=== PATIENT | male | born 1975 | race Two or more races ===

== ENCOUNTER 2018-04-23 23:13 | Emergency (ER) | payer MEDICAID ==
[~2018-04-23] VITALS: Ht 167.6 cm; Wt 60.8 kg
[2018-04-23 23:19] VITALS: BP 114/80
[2018-04-23] MEDS ORDERED: ONDANSETRON HCL/PF 4 MG/2 ML VIAL IM ONE (23:30)
[2018-04-23] MEDS ORDERED: ONDANSETRON HCL/PF 4 MG/2 ML VIAL ONE (23:38)
[2018-04-23] MEDS ORDERED: DIATR MEGLU/DIATRIZOATE SODIUM 30 ML BOTTLE (GASTROGRAPHIN) ONE (23:39)
--- NOTE | 2018-04-23 23:54 | NUR ---
[facility] TRANSPORT ETA 1650. TRIP#[id number]
[2018-04-24] MEDS ORDERED: LORAZEPAM INJ 2 MG/ML VIAL ONE ×2 (02:50→03:16)
[2018-04-24] MEDS ORDERED: LORAZEPAM INJ 2 MG/ML VIAL IM ONE ×2 (03:00→03:30)
== END 2018-04-24 03:38 | disposition home or self-care (01) ==
LOC: ER 23:21
DX: Z93.1 Gastrostomy status (principal); G93.40 Encephalopathy, unspecified; I10 Essential (primary) hypertension; K21.9 Gastro-esophageal reflux disease without esophagitis; N17.0 Acute kidney failure with tubular necrosis; Z86.711 Personal history of pulmonary embolism; Z87.09 Personal history of other diseases of the respiratory system
CPT/HCPCS: 43762; 74018; 96372 ×2; 99284; A4606 ×2; J2060 ×2; J2405; Q9963

== ENCOUNTER 2018-09-20 12:52 | Inpatient (IN) | payer MEDICAID ==
[~2018-09-20] VITALS: Ht 172.7 cm; Wt 66.7 kg
--- NOTE | 2018-09-20 13:05 | NUR ---
[facility]. AGITATED ENVIRONMENTAL PROTECTION FORESTER TRYING TO PULL OUT G TUBE. PER EMT, PT BASELINE AOX3-4. ON ARRIVAL PT AOX1, TACHY AND HYPERTENSIVE, RR EVEN AND UNLABORED ON RA. MEXICAN-SPEAKING. READY FOR EVAL.
--- NOTE | 2018-09-20 13:17 | NUR ---
BLOOD DRAWN AND URINE COLLECTED, SENT TO STAT LAB
[2018-09-20 13:18] LABS: BASOPHILS # (AUTO) 0.1 /CMM (0.0-0.2); HEMATOCRIT 34 % (39-51); HEMOGLOBIN 11.3 g/dL (13.5-17.5); LYMPHOCYTES # (AUTO) 1.5 /CMM (0.8-4.8); MEAN CORPUSCULAR HGB CONC 33 g/dl (31.0-36.0); MEAN CORPUSCULAR VOLUME 86 fL (80-96); MONOCYTES # (AUTO) 0.3 /CMM (0.1-1.30); MONOCYTES % (AUTO) 3.3 % (2.0-12.0); NEUTROPHILS # (AUTO) 5.9 /CMM (1.8-8.9); NEUTROPHILS % (AUTO) 75.7 % (43.0-81.0); PLATELET COUNT (AUTO) 231 /CMM (150-450); RED BLOOD CELL COUNT(AUTO) 3.99 MIL/uL (4.5-6.0); WHITE BLOOD COUNT (AUTO) 7.8 K/uL (4.3-11.0)
[2018-09-20] MEDS ORDERED: AMLO10TA4 GT (13:21)
[2018-09-20] MEDS ORDERED: ACET-868 GT ×2 (13:21)
[2018-09-20] MEDS ORDERED: LISI40TA4 GT (13:21)
[2018-09-20] MEDS ORDERED: NA P133E RC (13:21)
[2018-09-20] MEDS ORDERED: BISA10SU61 RC (13:21)
[2018-09-20] MEDS ORDERED: ALBU2.5V13 IH ×2 (13:21)
[2018-09-20] MEDS ORDERED: MAGN400O6 GT (13:21)
[2018-09-20] MEDS ORDERED: PANT40SU GT (13:21)
[2018-09-20] MEDS ORDERED: TEMA15CA GT (13:21)
[2018-09-20] MEDS ORDERED: CLON0.5T GT (13:21)
[2018-09-20] MEDS ORDERED: ATOR40TA GT (13:21)
[2018-09-20] MEDS ORDERED: RIVA10TA PO (13:22)
[2018-09-20] MEDS ORDERED: QUET50TA PO (13:22)
[2018-09-20] MEDS ORDERED: SERT50TA PO (13:22)
[2018-09-20] MEDS ORDERED: QUET100T PO (13:22)
[2018-09-20] MEDS ORDERED: ASCO500C18 PO (13:24)
[2018-09-20] MEDS ORDERED: FERR325T23 PO (13:24)
[2018-09-20 13:25] LABS: APPEARANCE,URINE CLEAR (CLEAR); BILIRUBIN,URINE NEGATIVE (NEGATIVE); BLOOD, URINE 2+ Ery/uL (NEGATIVE); COLOR,URINE YELLOW (YELLOW); KETONES,URINE NEGATIVE (NEGATIVE); LEUKOCYTE ESTERASE ,URINE NEGATIVE (NEGATIVE); NITRITE, URINE NEGATIVE (NEGATIVE); PROTEIN,URINE NEGATIVE (NEGATIVE); UGLUCOSE NEGATIVE (NEGATIVE); UROBILINOGEN,URINE 0.2 EU/dL (0.2)
[2018-09-20 13:32] LABS: BACTERIA,URINE None seen /HPF (None Seen); SQUAMOUS EPITHELIAL CELL,UR Few /HPF (None Seen); WBC,URINE NONE SEEN /HPF (0-3)
[2018-09-20 13:38] LABS: ALANINE AMINOTRANSFERASE 55 U/L (12-78); ALBUMIN 3.9 g/dL (3.4-5.0); ALCOHOL, BLOOD < 3 mg/dL (0-0); ALKALINE PHOSPHATASE 67 U/L (46-116); ASPARTATE AMINOTRANSFERASE 26 U/L (15-37); BILIRUBIN,DIRECT 0.1 mg/dL (0.0-0.2); BILIRUBIN,TOTAL 0.4 mg/dL (0.2-1.0); CALCIUM, SERUM 8.8 mg/dL (8.5-10.1); CARBON DIOXIDE 27 mmol/L (21-32); CHLORIDE 103 mmol/L (98-107); CREATININE 1.4 mg/dL (0.6-1.3); GLUCOSE 102 mg/dL (74-106); SALICYLATE 3.3 mg/dL (2.8-20.0); SODIUM SERUM 139 mmol/L (136-145); TOTAL PROTEIN, SERUM 7.5 g/dL (6.4-8.2); UREA NITROGEN, BLOOD 20 mg/dL (7-18)
[2018-09-20 13:39] LABS: ACETAMINOPHEN 0 ug/ml (10-30)
[2018-09-20] MEDS ORDERED: OLANZAPINE 10 MG VIAL IM ONE ×2 (14:00→14:06)
[2018-09-20] MEDS ORDERED: ACETAMINOPHEN ES 500 MG TABLET PO ONE (14:00)
[2018-09-20] MEDS ORDERED: ACETAMINOPHEN ES 500 MG TABLET ONE (14:06)
[2018-09-20] MEDS ORDERED: CEFTRIAXONE 1GM BAG (ER ONLY) 50 ML IV ONE (14:14)
[2018-09-20 14:29] VITALS: BP 139/76
[2018-09-20] MEDS ORDERED: IV NS 0.9% 1,000 ML BAG IV ONE (14:30)
[2018-09-20] MEDS ORDERED: ACETAMINOPHEN 325 MG TABLET MC PRN (14:30)
[2018-09-20] MEDS ORDERED: CEFTRIAXONE 1 G in IV D5W 50 ML IV ONE (14:30)
[2018-09-20] MEDS ORDERED: ONDANSETRON HCL/PF 4 MG/2 ML VIAL IVP PRN (14:30)
[2018-09-20] MEDS ORDERED: BISACODYL SUPP (10 MG) 10 MG/SUPP.RECT SUPP.RECT RC PRN (14:30)
[2018-09-20] MEDS ORDERED: MAGNESIUM HYDROXIDE 30 ML UDC GT PRN (14:30)
[2018-09-20] MEDS ORDERED: AZITHROMYCIN 500 MG in IV D5W 250 ML IV ONE (14:30)
[2018-09-20] MEDS ORDERED: ALBUTEROL FS 2.5 MG/0.5 ML VIAL.NEB IH PRN (14:30)
[2018-09-20] MEDS ORDERED: ACETAMINOPHEN 325 MG TABLET PO PRN (14:30)
--- NOTE | 2018-09-20 14:34 | NUR ---
IVF INFUSING, PT KARINA WELL. WILL CONT TO MONITOR.
--- NOTE | 2018-09-20 14:54 | NUR ---
CALLED TO GIVE REPORT, NURSE UNAVAILABLE AT THIS TIME. STATED THEY WILL CALL BACK IN 10 MIN
--- NOTE | 2018-09-20 15:00 | NUR ---
AZITHROMYCIN GIVEN BY ME, MARKED UNDER WRONG USER.
--- NOTE | 2018-09-20 15:10 | NUR ---
REPORT GIVEN TO ZHANE ASCENCIO FOR 112-T
[2018-09-20] MEDS ORDERED: FEE PK DOSING 1 MIN EA MC ONE (15:51)
--- NOTE | 2018-09-20 15:51 | NUR ---
[facility]
[2018-09-20] MEDS ORDERED: ACETAMINOPHEN 650 MG/20.3 ML UDC GT PRN (16:00)
[2018-09-20] MEDS ORDERED: ACETAMINOPHEN 650 MG/20.3 ML UDC PO PRN (16:00)
--- NOTE | 2018-09-20 16:00 | NUR ---
telecom coordinator note received patient in bed , alert , oriented x2 with some forgetfulness and confusion , trying to get out off bed with soft restrain per er doctor , placed on tele sr 90, hl on rt fa intact , no sob noted ,on ra admitted with dx sepsis ,pna under Eunice rn conference producer ,will inform her for admitting orders , hospital,orientation done vs taken ,belonging checked by staff , bed in lowest and locked position , plan of care discussed with patient sitter at bedside at high frisk for fall,bed alarm placed on
[2018-09-20] MEDS: clonazePAM 0.5 MG TABLET GT SCH (16:51)
[2018-09-20] MEDS: LISINOPRIL (20MG) 20 MG TABLET GT SCH (16:52)
[2018-09-20] MEDS: VANCOMYCIN 1 GM in IV D5W 250 ML IV SCH (16:54)
--- NOTE | 2018-09-20 17:47 | NUR ---
REFUELING RAMPMAN NOTE PER ALMAZ RN MEDICAL CERTIFICATION SPECIALIST NPO X MEDS ,SWALLOW EVAL TOMORROW
[2018-09-20] MEDS ORDERED: PIPERACILLIN /TAZOBACTAM 3.375 G in IV D5W 50 ML IV SCH (18:00)
--- NOTE | 2018-09-20 18:30 | NUR ---
ACCESSORIES REPAIRER OTE CONT WITH SITTER ORDERED ,ALL NEEDS ATTENDED NOT IN DISTRESS ,NO SOB NOTED
--- NOTE | 2018-09-20 19:10 | NUR ---
HUB CUTTER APPRENTICE NOTE PATIENT REPORT GIVEN BEDSIDE, FAMILY PRESENT. PATIENT A/O X 2. PATIENT RELEASED FROM RESTRAINTS FOR PER FAMILY REQUEST. PATIENT STATES HE IS "MUY CORY." PATIENT DENIES PAIN OR DISCOMFORT PATIENT IS SR ON THE MONITOR NO S/S OF RESP DISTRESS. BREATHING EVEN AND UNLABORED. PATIENT PULSES STRONG AND PRESENT NO S/S OF CIRCULATION ISSUES. PATIENT BED IN LOWEST LOCKED POSITION, PLANS AND GOALS DISCUSSED WITH PATIENT. RN WILL CONTINUE TO MONITOR FOR CHANGES. SITTER PRESENT, AND SAFETY CHECKS Q 15 WILL BE DONE.
[2018-09-20] MEDS: CEFTRIAXONE 1 G in IV D5W 50 ML IV SCH (19:22)
[2018-09-20 20:00] VITALS: BP 147/84
[2018-09-20] MEDS: ATORVASTATIN 40 MG TABLET GT SCH (21:38)
[2018-09-20] MEDS ORDERED: QUETIAPINE FUMARATE 100 MG TABLET PO SCH (22:00)
[2018-09-21] VITALS: BP 126/85
[2018-09-21] MEDS: ALBUTEROL FS 2.5 MG/0.5 ML VIAL.NEB IH SCH ×5 (01:50→19:52)
[2018-09-21 04:00] VITALS: BP 135/91
[2018-09-21] MEDS: VANCOMYCIN 1 GM in IV D5W 250 ML IV SCH (04:00)
--- NOTE | 2018-09-21 06:51 | NUR ---
SENIOR ECONOMIST NOTE PATIENT TOLERATED THE NIGHT WELL NO ACUTE S/S OF DISTRESS. PATIENT WAS RELEASED FROM RESTRAINTS Q 3 HOURS FOR 30 MIN AT TIME. PATIENT AT 0630 STARTED TO REMOVED DIAPER DESPITE RESTRAINTS AND PROCEEDED TO RIP OFF EACH DIAPER AND EXPOSING HIMSELF. PATIENT EXPRESSED THAT HE WANTS PEOPLE TO SEE HIM EXPOSED SO THAT HE CAN TELL PEOPLE THAT THE SUPERVISOR METAL FABRICATING REFUSED TO PUT THE DIAPER ON HIM. RN WITNESS PATIENT REMOVING DIAPER AND DISCUSSION. PATIENT DENIES CHEST PAIN AT THIS TIME AND NO S/S OF SHORTNESS OF BREATH. PATIENT SR WITH HR OF 91 ON THE MONITOR. WILL ENDORSE TO AM FOR SAVANNAH.
[2018-09-21 07:23] LABS: BASOPHILS % (AUTO) 0.3 % (0.0-2.0); EOSINOPHILS % (AUTO) 1.4 % (0.0-6.0); HEMATOCRIT 35 % (39-51); HEMOGLOBIN 11.7 g/dL (13.5-17.5); LYMPHOCYTES # (AUTO) 2.3 /CMM (0.8-4.8); LYMPHOCYTES % (AUTO) 26.5 % (20.0-44.0); MEAN CORPUSCULAR HGB CONC 33 g/dl (31.0-36.0); MEAN CORPUSCULAR VOLUME 85 fL (80-96); MONOCYTES # (AUTO) 0.5 /CMM (0.1-1.30); MONOCYTES % (AUTO) 5.8 % (2.0-12.0); NEUTROPHILS # (AUTO) 5.6 /CMM (1.8-8.9); PLATELET COUNT (AUTO) 245 /CMM (150-450); RED BLOOD CELL COUNT(AUTO) 4.17 MIL/uL (4.5-6.0); WHITE BLOOD COUNT (AUTO) 8.5 K/uL (4.3-11.0)
--- NOTE | 2018-09-21 07:30 | NUR ---
INITIAL PATIENT ACTIVE TRYING TO GET OUT OF BED SOFT RESTRAINTS ADDED TO PREVENT PULLING LINES. HOWEVER, NO ACUTE S/S OF DISTRESS. PATIENT WAS RELEASED FROM RESTRAINTS FOR 30 MIN AT THIS TIME. PATIENT WITHOUT DIAPER PT COVERED WITH GOWN. PATIENT DENIES CHEST PAIN AT THIS TIME AND NO S/S OF SHORTNESS OF BREATH. PATIENT SR WITH HR OF 130'S ON THE MONITOR. WILL CONTINUE TO MONITOR.
[2018-09-21] MEDS: TEMAZEPAM 15 MG CAPSULE GT PRN ×2 (07:32→21:46)
[2018-09-21 07:47] LABS: BILIRUBIN,TOTAL 0.5 mg/dL (0.2-1.0); CALCIUM, SERUM 9.1 mg/dL (8.5-10.1); CREATININE 1.2 mg/dL (0.6-1.3); MAGNESIUM 1.7 mg/dL (1.8-2.4); PHOSPHORUS 3.6 mg/dL (2.5-4.9); POTASSIUM 3.7 mmol/L (3.5-5.1); TOTAL PROTEIN, SERUM 7.5 g/dL (6.4-8.2)
[2018-09-21 08:00] VITALS: BP 141/95
[2018-09-21 08:06] LABS: THYROID STIMULATING HORMONE 1.442 uIU/mL (0.358-3.74)
[2018-09-21] MEDS ORDERED: SERTRALINE HCL 50 MG TABLET GT SCH (09:00)
[2018-09-21] MEDS ORDERED: PANTOPRAZOLE 40 MG/PACK PACK GT SCH (09:00)
[2018-09-21] MEDS ORDERED: QUETIAPINE FUMARATE 25 MG TABLET PO SCH (09:00)
[2018-09-21] MEDS: ACETAMINOPHEN 650 MG/20.3 ML UDC GT SCH (09:23)
[2018-09-21] MEDS: clonazePAM 0.5 MG TABLET GT SCH ×2 (09:24→17:15)
[2018-09-21] MEDS: LISINOPRIL (20MG) 20 MG TABLET GT SCH ×2 (09:24→17:08)
[2018-09-21] MEDS: FERROUS SULFATE (325 MG) 325 MG/TAB TABLET PO SCH (09:24)
[2018-09-21] MEDS: AMLODIPINE BESYLATE 10 MG TABLET GT SCH (09:24)
[2018-09-21] MEDS: ASCORBIC ACID 500 MG TABLET PO SCH (09:24)
[2018-09-21] MEDS: PANTOPRAZOLE 40 MG/PACK PACK GT SCH (09:30)
--- NOTE | 2018-09-21 10:26 | NUR ---
RN NOTE: CALLED AND SPOKE WITH DR. DONALDSON TO INFORM HER ABOUT THE PSYCHIATRIC CONSULT FOR THE PATIENT. PER DR. DONALDSON, SHE WAS AWARE OF THE CONSULT FOR THE PATIENT AND WILL BE SEEING THE PATIENT TODAY. ALMAZ YUN NP MADE AWARE.
[2018-09-21] MEDS ORDERED: LORAZEPAM INJ 2 MG/ML VIAL IV ONE ×2 (10:30→19:00)
--- NOTE | 2018-09-21 10:42 | NUR ---
all medications given as ordered including Ativan pt remains active moving about pulling lines lawanda thomson aware psychiatrist consult ordered from [facility]
--- NOTE | 2018-09-21 11:22 | NUR ---
[facility] Psychiatrist Adam evaluating pt
[2018-09-21] MEDS: Magnesium 1GM/D5W 100ML PREMIX 100 ML IV SCH ×2 (11:44→13:08)
[2018-09-21 12:02] VITALS: BP 123/73
[2018-09-21] MEDS: BENZTROPINE MESYLATE (1 MG) 1 MG TABLET GT SCH ×2 (12:14→17:08)
[2018-09-21] MEDS: HALOPERIDOL 5 MG TABLET GT SCH ×2 (12:14→17:03)
[2018-09-21] MEDS: VALPROIC ACID 250 MG/5 ML UDC GT SCH ×2 (13:08→17:00)
--- NOTE | 2018-09-21 14:01 | NUR ---
PT SLEEPING COMFORTABLY. NO S/S OF SOB NOTED. WILL CONT TO SLEEP. RN AT BEDSIDE Addendum: 09/21/18 at 1401 by CAM ZABALA RT Amended: Links added.
[2018-09-21] MEDS: IV NS 0.9% 1,000 ML IV SCH (15:03)
[2018-09-21 16:00] VITALS: BP 120/75
[2018-09-21] MEDS: RIVAROXABAN 10 MG TABLET PO SCH (17:02)
[2018-09-21] MEDS: LACTOBACILLUS RHAMNOSUS GG 1 EACH CAP.SPRINK GT SCH (17:08)
--- NOTE | 2018-09-21 18:07 | NUR ---
pt calm after new medications ordered able to take all medication through g-tube and on N/S @ 50ml/hr pt off restraints since 1600 1700 vancomycin not given on time call pharmacy who stated they were waiting for vancomycin trough called lab Vanco trough 12 called pharmacy with new results stated they would make the dose at 1745 pharmacy called back stating that they were going to increase dose and had to remake vancomycin will given report to PM shift RN for continuity of care
[2018-09-21] MEDS: VANCOMYCIN 1.25 GM in IV D5W 500 ML IV SCH (18:29)
--- NOTE | 2018-09-21 19:20 | NUR ---
RN PM OPENING NOTE PATIENT ALERT AND SQUIRMING SLIGHTLY TO RESTRAINTS. IN BILATERAL SOFT WRIST RESTRAINTS PATIENT HAS HISTORY OF PULLING AT IV LINES AND G TUBE, ABD BINDER ON ABD COVIERING G TUBE. SITTER DAYDAY AT THE BEDSIDE. NO ACUTE S/S OF DISTRESS. PATIENT KEEPS PULLING OFF GOWN SO CURRENTLY HE IS COVERED WITH A SHEET. PATIENT HAS NO S/S OF SHORTNESS OF BREATH. IV INFUSING TO RIGHT WRIST/FOREARM WITH NO S/S OF INFILTRATION. PATIENT IS MED SURGE PATIENT. WILL CONT TO MONITOR.
[2018-09-21] MEDS: CEFTRIAXONE 1 G in IV D5W 50 ML IV SCH (21:46)
[2018-09-21] MEDS: ATORVASTATIN 40 MG TABLET GT SCH (21:46)
--- NOTE | 2018-09-21 23:51 | NUR ---
ATIVAN SCHEDULED FOR 1899. ONE TIME DOSE OF ATIVAN ORDERED FOR 1899. PER REPORT FROM JUAREZ PHELAN. ATIVAN WAS ADMINISTERED BEFORE CHANGE OF SHIFT NOT DOCUMENTED IN . THERE IS RECORD OF HIM REMOVING FORM PYXIS. CHARGE NURSE JOSÉ MIGUEL NOTIFIED AROUND 2129. PHONE CALL AND MESSAGE LEFT FOR JUAREZ PHELAN AT 2129. TIE LOADER NOTIFIED AT 2134. NON ADMIN D/T POTENTIAL DOULBE DOSE. NO CALL BACK FROM JUAREZ AT THIS TIME. CURRENTLY THE PATIENT HAS BEEN RELAXED AND HAS BEEN SLEEPING INTERMITTENTLY THROUGH SHIFT. WILL CONT TO MONITOR.
[2018-09-22] VITALS: BP 120/77
[2018-09-22] MEDS: ALBUTEROL FS 2.5 MG/0.5 ML VIAL.NEB IH SCH ×4 (01:42→19:34)
[2018-09-22 04:00] VITALS: BP 97/72
[2018-09-22] MEDS: VANCOMYCIN 1.25 GM in IV D5W 500 ML IV SCH (05:32)
[2018-09-22 06:41] LABS: BASOPHILS % (AUTO) 0.7 % (0.0-2.0); EOSINOPHILS % (AUTO) 1.6 % (0.0-6.0); HEMATOCRIT 34 % (39-51); HEMOGLOBIN 11.3 g/dL (13.5-17.5); LYMPHOCYTES # (AUTO) 1.8 /CMM (0.8-4.8); LYMPHOCYTES % (AUTO) 31.5 % (20.0-44.0); MEAN CORPUSCULAR HGB CONC 34 g/dl (31.0-36.0); MEAN CORPUSCULAR VOLUME 85 fL (80-96); MONOCYTES # (AUTO) 0.5 /CMM (0.1-1.30); MONOCYTES % (AUTO) 8.8 % (2.0-12.0); NEUTROPHILS # (AUTO) 3.2 /CMM (1.8-8.9); NEUTROPHILS % (AUTO) 57.4 % (43.0-81.0); PLATELET COUNT (AUTO) 214 /CMM (150-450); RED BLOOD CELL COUNT(AUTO) 3.95 MIL/uL (4.5-6.0); WHITE BLOOD COUNT (AUTO) 5.6 K/uL (4.3-11.0)
--- NOTE | 2018-09-22 06:57 | NUR ---
RN PM CLOSING NOTE. PATIENT RESTING IN BED IN NO APPARENT DISTRESS BREATHING EVEN AND UNLABORED ON ROOM AIR. AT REGULAR RATE. IVF CONT INFUSION TO RIGHT FA AT 50ML/HR/HR AND SECONDARY VANCO STILL INFUSING AT 250 MLS PER HOURNO S/S OF INFILTRATION. RESTING WITH EYES CLOSED RESTRAINTS TO BILAT EXTREM SOFT WRIST IN PLACE WITH GOOD CIRCULATION. DAYDAY JHA AT THE BEDSIDE.
[2018-09-22 07:02] LABS: CALCIUM, SERUM 8.8 mg/dL (8.5-10.1); CREATININE 1.1 mg/dL (0.6-1.3); MAGNESIUM 2.2 mg/dL (1.8-2.4); POTASSIUM 3.8 mmol/L (3.5-5.1)
[2018-09-22 08:00] VITALS: BP 112/79
[2018-09-22] MEDS: FERROUS SULFATE (325 MG) 325 MG/TAB TABLET PO SCH (08:39)
[2018-09-22] MEDS: LISINOPRIL (20MG) 20 MG TABLET GT SCH ×2 (08:39→17:51)
[2018-09-22] MEDS: ACETAMINOPHEN 650 MG/20.3 ML UDC GT SCH (08:39)
[2018-09-22] MEDS: HALOPERIDOL 5 MG TABLET GT SCH ×3 (08:39→20:03)
[2018-09-22] MEDS: clonazePAM 0.5 MG TABLET GT SCH ×2 (08:39→17:51)
[2018-09-22] MEDS: VALPROIC ACID 250 MG/5 ML UDC GT SCH ×3 (08:39→17:50)
[2018-09-22] MEDS: LACTOBACILLUS RHAMNOSUS GG 1 EACH CAP.SPRINK GT SCH ×2 (08:40→17:50)
[2018-09-22] MEDS: PANTOPRAZOLE 40 MG/PACK PACK GT SCH (08:40)
[2018-09-22] MEDS: ASCORBIC ACID 500 MG TABLET PO SCH (08:40)
[2018-09-22] MEDS: AMLODIPINE BESYLATE 10 MG TABLET GT SCH (08:40)
[2018-09-22] MEDS: BENZTROPINE MESYLATE (1 MG) 1 MG TABLET GT SCH ×2 (08:40→17:50)
[2018-09-22] MEDS: IV NS 0.9% 1,000 ML IV SCH (11:00)
[2018-09-22] MEDS ORDERED: HALO5TAB8 GT (13:42)
[2018-09-22] MEDS ORDERED: CLON0.5T12 GT (13:42)
[2018-09-22] MEDS ORDERED: VALP250S22 GT (13:42)
--- NOTE | 2018-09-22 14:12 | NUR ---
PATIENT PULLED OUT IV, PER ALMAZ HUNT OKAY TO D/C FLUIDS
[2018-09-22 16:00] VITALS: BP 124/84
--- NOTE | 2018-09-22 17:24 | NUR ---
PATIENT SEEN BY [address]. RECEIVED D/C ORDER, HOLD PER CASE MANAGEMENT DUE TO PLACEMENT ISSUES Addendum: 09/22/18 at 1725 by GARY SEXTON RN ALMAZ HUNT AWARE Addendum: 09/22/18 at 1725 by GARY SEXTON RN PER ALMAZ HUNT, STILL OKAY THAT PATIENT DOES NOT HAVE IV.
--- NOTE | 2018-09-22 17:34 | NUR ---
PATIENT IS PULLING AT LINES, RESTLESS, KICKING, BITING, REMOVING EVERYTHING. PER SEWER SYSTEM SUPERVISOR ORDER, 4 POINT RESTRAINTS + MITTENS INITIATED. CIRCULATION AND SENSATION CHECKS Q2HRS THROUGHOUT SHIFT COMPLETED + ACTIVE RANGE OF MOTION PROVIDED.
[2018-09-22] MEDS: RIVAROXABAN 10 MG TABLET PO SCH (17:51)
[2018-09-22] MEDS: JEVITY 1.2 CAL 1,000 ML BOTTLE GT PRN (19:40)
[2018-09-22 20:00] VITALS: BP 163/83
[2018-09-22] MEDS: TEMAZEPAM 15 MG CAPSULE GT PRN (20:03)
[2018-09-22] MEDS: ATORVASTATIN 40 MG TABLET GT SCH (22:08)
[2018-09-22] MEDS: HALOPERIDOL 5 MG TABLET PO PRN (23:19)
[2018-09-23] MEDS: ALBUTEROL FS 2.5 MG/0.5 ML VIAL.NEB IH SCH ×4 (01:01→20:43)
[2018-09-23 04:00] VITALS: BP 109/73
[2018-09-23] MEDS: HALOPERIDOL 5 MG TABLET PO PRN (05:29)
[2018-09-23 06:35] LABS: CALCIUM, SERUM 9.1 mg/dL (8.5-10.1); CREATININE 1.5 mg/dL (0.6-1.3); POTASSIUM 3.7 mmol/L (3.5-5.1)
[2018-09-23 08:00] VITALS: BP 104/75
[2018-09-23] MEDS: PANTOPRAZOLE 40 MG/PACK PACK GT SCH (08:13)
[2018-09-23] MEDS: VALPROIC ACID 250 MG/5 ML UDC GT SCH ×3 (08:15→16:42)
[2018-09-23] MEDS: ACETAMINOPHEN 650 MG/20.3 ML UDC GT SCH (08:15)
[2018-09-23] MEDS: ASCORBIC ACID 500 MG TABLET PO SCH (08:16)
[2018-09-23] MEDS: BENZTROPINE MESYLATE (1 MG) 1 MG TABLET GT SCH ×2 (08:16→16:43)
[2018-09-23] MEDS: clonazePAM 0.5 MG TABLET GT SCH ×2 (08:17→17:21)
[2018-09-23] MEDS: LISINOPRIL (20MG) 20 MG TABLET GT SCH ×2 (08:18→16:43)
[2018-09-23] MEDS: HALOPERIDOL 5 MG TABLET GT SCH ×3 (08:19→16:43)
[2018-09-23] MEDS: LACTOBACILLUS RHAMNOSUS GG 1 EACH CAP.SPRINK GT SCH ×2 (08:19→16:43)
[2018-09-23] MEDS: AMLODIPINE BESYLATE 10 MG TABLET GT SCH (08:20)
[2018-09-23] MEDS: FERROUS SULFATE (325 MG) 325 MG/TAB TABLET PO SCH (08:20)
--- NOTE | 2018-09-23 13:06 | NUR ---
MS RN NOTE DR CONTRERAS PSYCHIATRIST SEEN PT ORDERED TO CHANGE HALDOL 5MG PO BID. ORDER CARRIED OUT.
--- NOTE | 2018-09-23 13:09 | NUR ---
MS RN NOTE PT STILL NEEDS SOFT RESTRAIN AND PT STILL AT HIGH RISK TO REMOVE ALL LINES AND AT RISK INJURY TO HIMSELF
--- NOTE | 2018-09-23 15:10 | NUR ---
MS RN NOTE PER NEUROLOGIST NO BED AVAILABLE AT INTERMEDIATE FACILITY FOR DISCHARGE. UNABLE TO COLLECT SPUTUM CULTURE B/C PT WAS WAS NOT COOPERATIVE AND AGITATED.
[2018-09-23 16:00] VITALS: BP 114/77
[2018-09-23] MEDS: RIVAROXABAN 10 MG TABLET PO SCH (16:44)
[2018-09-23] MEDS ORDERED: HALOPERIDOL 5 MG TABLET PO SCH (17:00)
--- NOTE | 2018-09-23 18:22 | NUR ---
MS RN NOTE CALLED KITCHEN TO BRING TRAY FOR PATENT. ALL NEEDS ATTENDED ,SITTER AT BEDSIDE, WILL CONT TO MONITOR
[2018-09-23 20:00] VITALS: BP 99/65
--- NOTE | 2018-09-23 20:00 | NUR ---
RN NOTE RECEIVED PATIENT IN THE BED, AWAKE, ORIENTED TO NAME ONLY, OFF RESTRAINTS, SITTER 1:1 IS BY BEDSIDE Addendum: 09/23/18 at 2256 by ADELINA MARROQUIN RN NO RESPIRATORY DISTRESS NOTED, AFEBRILE
[2018-09-23] MEDS: MUPIROCIN OINT 2% 22 GM TUBE SCH (21:10)
[2018-09-23] MEDS: ATORVASTATIN 40 MG TABLET GT SCH (21:11)
[2018-09-23] MEDS: TEMAZEPAM 15 MG CAPSULE GT PRN (21:48)
[2018-09-24] MEDS: ALBUTEROL FS 2.5 MG/0.5 ML VIAL.NEB IH SCH ×4 (01:43→19:40)
[2018-09-24 04:00] VITALS: BP 118/76
[2018-09-24 07:41] LABS: CALCIUM, SERUM 9.1 mg/dL (8.5-10.1); CREATININE 1.2 mg/dL (0.6-1.3); POTASSIUM 3.9 mmol/L (3.5-5.1)
[2018-09-24 08:00] VITALS: BP 124/81
[2018-09-24] MEDS: clonazePAM 0.5 MG TABLET GT SCH ×2 (09:35→16:32)
[2018-09-24] MEDS: PANTOPRAZOLE 40 MG/PACK PACK GT SCH (09:35)
[2018-09-24] MEDS: VALPROIC ACID 250 MG/5 ML UDC GT SCH ×3 (09:36→16:29)
[2018-09-24] MEDS: LISINOPRIL (20MG) 20 MG TABLET GT SCH ×2 (09:37→16:31)
[2018-09-24] MEDS: ACETAMINOPHEN 650 MG/20.3 ML UDC GT SCH (09:37)
[2018-09-24] MEDS: HALOPERIDOL 5 MG TABLET GT SCH ×2 (09:38→16:29)
[2018-09-24] MEDS: LACTOBACILLUS RHAMNOSUS GG 1 EACH CAP.SPRINK GT SCH (09:38)
[2018-09-24] MEDS: BENZTROPINE MESYLATE (1 MG) 1 MG TABLET GT SCH ×2 (09:39→16:29)
[2018-09-24] MEDS: ASCORBIC ACID 500 MG TABLET PO SCH (09:39)
[2018-09-24] MEDS: AMLODIPINE BESYLATE 10 MG TABLET GT SCH (09:39)
[2018-09-24] MEDS: FERROUS SULFATE (325 MG) 325 MG/TAB TABLET PO SCH (09:40)
[2018-09-24] MEDS: MUPIROCIN OINT 2% 22 GM TUBE SCH ×2 (09:41→21:28)
[2018-09-24] MEDS: HALOPERIDOL 5 MG TABLET PO PRN (12:53)
[2018-09-24] MEDS: JEVITY 1.2 CAL 1,000 ML BOTTLE GT PRN (14:38)
[2018-09-24 16:00] VITALS: BP 124/80
[2018-09-24] MEDS: RIVAROXABAN 10 MG TABLET PO SCH (16:31)
--- NOTE | 2018-09-24 18:00 | NUR ---
ms rn end of shift notes gave report to mu carney, at [facility]. family (diego) notified of pt transfer. endorsed care of pt to leonor carney pm nurse to continue with discharge.
--- NOTE | 2018-09-24 19:20 | NUR ---
MS RN NOTE PATIENT REPORT GIVEN BEDSIDE. RN AWARE OF D/C. PATIENT HAS SITTER AT BEDSIDE NO S/S OF CARDIAC OR RESP DISTRESS. [facility]. PENDING TRANSFER. DISCUSSED WITH PATIENT D/C PATIENT AWARE RN WILL CONTINUE TO MONITOR. SAFETY PRECAUTIONS IN PLACE.
[2018-09-24 20:00] VITALS: BP 97/67
--- NOTE | 2018-09-24 20:24 | NUR ---
[address] [facility] CALLED AND SAID THEY CANNOT TAKE PATIENT TONIGHT DUE TO SHORT STAFFING, UNABLE TO PROVIDE SITTER FOR PATIENT IN THEIR FACILITY. DANAE FUNEZ NOTIFIED AND MADE AWARE.
--- NOTE | 2018-09-24 20:55 | NUR ---
MS RN NOTE FAMILY (ROSIBEL) NOTIFIED THAT PATIENT WOULD NOT BE [facility] TO [facility].
[2018-09-24] MEDS: ATORVASTATIN 40 MG TABLET GT SCH (21:26)
[2018-09-25] MEDS: ALBUTEROL FS 2.5 MG/0.5 ML VIAL.NEB IH SCH ×4 (02:06→19:50)
[2018-09-25 04:00] VITALS: BP_SYST 101; BP_SYST 128; BP_DIAS 66; BP_DIAS 81
[2018-09-25 06:55] LABS: CREATININE 1.4 mg/dL (0.6-1.3); POTASSIUM 4.2 mmol/L (3.5-5.1)
--- NOTE | 2018-09-25 07:30 | NUR ---
RN AM SHIFT NOTE PATIENT IN BED ASLEEP. SIDE RAILS UP, NO AM LABS ONLY BMP TO BE DONE THIS AM. CALL LIGHT WITHIN REACH , SAFETY MEASURES IN PLACE. ISOLATION PRECAUTIONS IN PLACE. HEAD WOOD GRINDER AT BEDSIDE SITTER PRESENT AND UPDATED BY RN REGARDING CONDITOIN. NEW MEDICATION ORDER BY PSYCH WILL BE CARRIED OUT THIS AM BY RN. G TUBE PATENT AND FLUHING WELL ABD BINDER ON. NO IV PRESENT AT THIS TIME. MONITOR AND MAINTAIN SAFETY OF PATIETN.
[2018-09-25] MEDS: FERROUS SULFATE (325 MG) 325 MG/TAB TABLET PO SCH (08:16)
[2018-09-25] MEDS: ACETAMINOPHEN 650 MG/20.3 ML UDC GT SCH (08:16)
[2018-09-25] MEDS: BENZTROPINE MESYLATE (1 MG) 1 MG TABLET GT SCH ×2 (08:16→17:33)
[2018-09-25] MEDS: ASCORBIC ACID 500 MG TABLET PO SCH (08:16)
[2018-09-25] MEDS: VALPROIC ACID 250 MG/5 ML UDC GT SCH ×2 (08:17→13:05)
[2018-09-25] MEDS: AMLODIPINE BESYLATE 10 MG TABLET GT SCH (08:17)
[2018-09-25] MEDS: PANTOPRAZOLE 40 MG/PACK PACK GT SCH (08:17)
[2018-09-25] MEDS: HALOPERIDOL 5 MG TABLET GT SCH ×3 (08:17→17:35)
[2018-09-25] MEDS: LISINOPRIL (20MG) 20 MG TABLET GT SCH ×2 (08:18→17:33)
[2018-09-25] MEDS: MUPIROCIN OINT 2% 22 GM TUBE SCH ×2 (08:18→21:22)
[2018-09-25] MEDS ORDERED: clonazePAM 0.5 MG TABLET GT SCH (09:00)
[2018-09-25 12:23] VITALS: BP 112/84
--- NOTE | 2018-09-25 12:24 | NUR ---
RN NOTE PATIENT IS LETHARGIC. SITTER AT BEDSIDE. NO RESTRAINTS, RESISTANT TO POSITION CHANGES, BOUTS OF CRYING UNPROVOKED. VITALS WNL. SAFETY MEASURES ARE IN PLACE. CONTINUE TO MONITOR.
[2018-09-25] MEDS: RIVAROXABAN 10 MG TABLET PO SCH (17:34)
--- NOTE | 2018-09-25 19:10 | NUR ---
WAREHOUSER NOTE PATIENT IS AOX1, SITTER AT BEDSIDE, NO RESPIRATORY OR CARDIAC DISTRESS NOTED, SKIN KEPT CLEAN AND DRY, INCONTINENT, PT HAS G TUBE WITH JEVITY AT 30 ML/HR, NO IV ACCESS, SAFETY MAINTAINED AT ALL TIMES, BED IN LOW LOCKED POSITION, WILL CONTINUE TO MONITOR FOR ANY CHANGES.
--- NOTE | 2018-09-25 19:29 | NUR ---
RN CLOSING NOTE PATIENT LETHARGIC NON COOPERATIVE UNABLE TO EAT . GTUBE IN PLACE PATENT AND FLUSING WELL. NO IV ACCESS. [facility] ACCEPTED PATIENT DC TOMORROW. SAFETY PRECATIONS IN PLACE.
[2018-09-25] MEDS: SERTRALINE HCL 25 MG TABLET GT SCH ×2 (19:40→20:36)
[2018-09-25 20:00] VITALS: BP_SYST 100; BP_SYST 128; BP_DIAS 78; BP_DIAS 81
[2018-09-25] MEDS: ATORVASTATIN 40 MG TABLET GT SCH (21:22)
[2018-09-25] MEDS: JEVITY 1.2 CAL 1,000 ML BOTTLE GT PRN (23:52)
[2018-09-26] VITALS: BP 113/80
[2018-09-26] MEDS: ALBUTEROL FS 2.5 MG/0.5 ML VIAL.NEB IH SCH ×2 (01:16→07:15)
[2018-09-26 04:00] VITALS: BP 113/80
[2018-09-26 06:30] LABS: CALCIUM, SERUM 9.2 mg/dL (8.5-10.1); CREATININE 1.4 mg/dL (0.6-1.3); POTASSIUM 4.1 mmol/L (3.5-5.1)
--- NOTE | 2018-09-26 07:30 | NUR ---
RN OPENING NOTES PT IS RESTING IN BED WITH SITTER AT BEDSIDE. PER REPORT FROM ELECTION JUDGE PT IS UNCOOPERATIVE AND COMBATIVE. PT IS RESTING AND BREATHING EQUAL WITH EQUAL CHEST RISE AND FALL. PT HAS G-TUBE FEEDING RUNNING AT 30 ML/HR NO RESIDUAL NOTED. PT IS EXPECTED TO D/C BACK TO [facility] AT 0830 AMBULANCE INSURANCE OPERATIONS REP.
[2018-09-26 08:00] VITALS: BP 135/94
[2018-09-26] MEDS ORDERED: VALPROIC ACID 250 MG/5 ML UDC GT SCH (08:00)
--- NOTE | 2018-09-26 08:20 | NUR ---
REPORT GIVEN TO DAVID ALEXANDER AT [facility]. INSPECTOR ASSEMBLY TIME SET FOR 0830 VIA AMBULANCE.
[2018-09-26] MEDS: HALOPERIDOL 5 MG TABLET GT SCH (08:34)
[2018-09-26] MEDS: AMLODIPINE BESYLATE 10 MG TABLET GT SCH (08:50)
[2018-09-26] MEDS: ACETAMINOPHEN 650 MG/20.3 ML UDC GT SCH (08:50)
[2018-09-26 08:51] VITALS: BP 135/94
[2018-09-26] MEDS: SERTRALINE HCL 25 MG TABLET GT SCH (08:51)
[2018-09-26] MEDS: BENZTROPINE MESYLATE (1 MG) 1 MG TABLET GT SCH (08:51)
[2018-09-26] MEDS: ASCORBIC ACID 500 MG TABLET PO SCH (08:51)
[2018-09-26] MEDS: FERROUS SULFATE (325 MG) 325 MG/TAB TABLET PO SCH (08:51)
[2018-09-26] MEDS: LISINOPRIL (20MG) 20 MG TABLET GT SCH (08:51)
[2018-09-26] MEDS: PANTOPRAZOLE 40 MG/PACK PACK GT SCH (08:51)
[2018-09-26] MEDS: MUPIROCIN OINT 2% 22 GM TUBE SCH (08:52)
--- NOTE | 2018-09-26 09:15 | NUR ---
D/C NOTES Pt showed no signs of sob or pain at time of discharge. Last set of vitals taken. belongings list signed pt had no iv access. Report given to EMT's. PT LOADED UP ONTO EMT[place]S [place] WITHOUT INCIDENT PT DISCHARGED AT 0915 GOING TO [facility] REPORT WAS RECEIVED BY DAVID AT [facility].
== END 2018-09-26 09:36 | DRG 422 ==
LOC: ER 12:56 → TELE1 14:42 → MEDSG1 14:42 → TELE1 17:17 → MEDSG1 09-21 11:30
PROVIDERS: ADMIT Registered Nurse; ATTEND Registered Nurse
DX: E86.0 Dehydration (principal); G92 Toxic encephalopathy; J96.11 Chronic respiratory failure with hypoxia; N17.9 Acute kidney failure, unspecified; R13.10 Dysphagia, unspecified; F05 Delirium due to known physiological condition; F03.90 Unspecified dementia, unspecified severity, without behavioral disturbance, psychotic disturbance, mood disturbance, and anxiety; I69.359 Hemiplegia and hemiparesis following cerebral infarction affecting unspecified side; E78.5 Hyperlipidemia, unspecified; Z86.711 Personal history of pulmonary embolism; I10 Essential (primary) hypertension; K21.9 Gastro-esophageal reflux disease without esophagitis; I25.2 Old myocardial infarction; Z93.1 Gastrostomy status; D64.9 Anemia, unspecified; R40.2142 Coma scale, eyes open, spontaneous, at arrival to emergency department; R40.2242 Coma scale, best verbal response, confused conversation, at arrival to emergency department; R40.2362 Coma scale, best motor response, obeys commands, at arrival to emergency department; F29 Unspecified psychosis not due to a substance or known physiological condition; Z22.322 Carrier or suspected carrier of Methicillin resistant Staphylococcus aureus
CPT/HCPCS: 36415; 71045-TC; 80048-TC; 80053-TC; 80061-TC; 80076-TC; 80164-TC; 80202-TC; 80305; 81000-TC; 83605-TC; 83735-TC; 84100-TC; 84443-TC; 85025-TC; 87040-TC; 87081-TC; 87086-TC; 87400; 92526; 92611-TC; 94799-TC; G0378; G0480; J0456; J0696; J2060; J2543; J3370; J3475; J3490; J7030; J7040; J7060